=== PATIENT | female | born 1975 | race Caucasian/White ===

== ENCOUNTER 2022-10-22 15:12 | Outpatient (REF) | payer OTHER, SELFPAY ==
[2022-10-22 15:59] LABS: SARS-CoV-2 Ag NEGATIVE (NEGATIVE)
[2022-10-23 15:13] LABS: SARS-CoV-2 NAA NOT DETECTED (NOT DETECTE)
== END 2022-10-22 15:13 | disposition home or self-care (01) ==
LOC: LAB 15:12
PROVIDERS: PCP Family Medicine; Visit Provider Family Medicine
DX: R53.83 Other fatigue (principal); R50.9 Fever, unspecified
CPT/HCPCS: 87635; 87811; U0003

== ENCOUNTER 2023-10-28 10:46 | Emergency (ER) | payer OTHER, SELFPAY ==
[2023-10-28 10:49] VITALS: BP 180/100; PULSE 79; TEMP 36.8; O2SAT 95; BMI 37.8
--- NOTE | 2023-10-28 11:00 | US_ITS ---
The [address] [address] Patient Name: MELLY ROMERO MRN: [id number] date: 1975 Sex: F Assigned Patient Location: ER Current Patient Location: ER Accession/Order Number: [id number] Exam Date: 10/28/2023 11:01 Report Date: 10/28/2023 12:33 At the request of: JOHNNY MURCIA Procedure: US right upper quadrant EXAM: US right upper quadrant HISTORY: Right upper quadrant pain COMPARISON: None. TECHNIQUE: Grayscale, color and Doppler FINDINGS: The liver measures 19.2 cm in length. The liver contour is nodular. Diffuse increase in hepatic echotexture with no focal mass. Hepatopedal flow identified in the main portal vein with a velocity of 23 cm/s. The gallbladder is normal in size. Negative sonographic Multani sign. The wall measures 1.4 mm. 2 areas of echogenicity in the posterior gallbladder wall, adherent stones are suspected. Common bile duct measures 3.7 mm. The visualized pancreas is normal The right kidney is normal. No free fluid US/US right upper quadrant IMPRESSION: Echogenic nodular liver, consider cirrhosis Cholelithiasis without evidence of acute cholecystitis Electronically authenticated by: JOSE DAVID WILSON Date: 10/28/2023 12:33
--- NOTE | 2023-10-28 11:01 | ED_ITS ---
HPI - Abdominal Pain General Chief Complaint: Abdominal Pain Stated Complaint: FLANK PAIN, RIGHT Time Seen by Provider: 10/28/23 10:56 Source: patient Mode of arrival: walk-in Limitations: no limitations History of Present Illness HPI narrative: 48-year-old female presents for pain to the right upper abdomen. She developed this while she was walking last night at 9 PM and it has been there continuously since then. There was no injury. She is never had problems with her gallbladder and the pain is moderate and sharp. Related Data Previous Rx's ?Medication ?Instructions ?Recorded acetaminophen 300 mg-codeine 30 mg 1 tab PO Q6H PRN pain 5 days #20 10/28/23 tablet tabs ondansetron 4 mg disintegrating 4 mg PO Q6H PRN nausea and 10/28/23 tablet vomiting #20 tabs Allergies Allergy/AdvReac Type Severity Reaction Status Date / Time No Known Drug Allergies Allergy Verified 10/28/23 10:49 Review of Systems ROS Narrative A ten point review of systems is negative except as noted above. PFSH PFSH Social History Little interest or pleasure in doing things: not at all Feeling down, depressed, or hopeless: not at all Exam Narrative Exam Narrative: Nurses note and vital signs reviewed and patient is not hypoxic. General: The patient appears well and in no apparent distress. Patient is resting comfortably on cart. Skin: Warm, dry, no pallor noted. There is no rash noted. Head: Normocephalic, atraumatic Eye: Normal conjunctiva, no drainage Ears, Nose, Mouth, and Throat: oral mucosa is moist. Nares patent. Cardiovascular: Regular Rate and Rhythm Respiratory: Patient is in no distress, no accessory muscle use, lungs are clear to auscultation, no wheezing, rales or rhonchi Back: non-tender GI: Mild tenderness to palpation in the right upper quadrant only. No masses or distention. Elsewhere the abdomen is nontender. Musculoskeletal: The patient has no evidence of calf tenderness, no pitting edema, symmetrical pulses noted bilaterally Neurological: A&O, normal speech Psychiatric: Cooperative Constitutional Vital Signs, click to edit/add: Last Vital Signs Temp 98.3 F 10/28/23 10:49 Pulse 79 10/28/23 10:49 Resp 18 10/28/23 10:49 BP 153/82 H 10/28/23 11:46 Pulse Ox 95 10/28/23 10:49 O2 Del Method Room Air 10/28/23 10:49 Course Vital Signs Vital signs: Vital Signs Temperature 98.3 F 10/28/23 10:49 Pulse Rate 79 10/28/23 10:49 Respiratory Rate 18 10/28/23 10:49 Blood Pressure 180/100 H 10/28/23 10:49 Pulse Oximetry 95 10/28/23 10:49 Oxygen Delivery Method Room Air 10/28/23 10:49 Temperature 98.3 F 10/28/23 10:49 Pulse Rate 79 10/28/23 10:49 Respiratory Rate 18 10/28/23 10:49 Blood Pressure 153/82 H 10/28/23 11:46 Pulse Oximetry 95 10/28/23 10:49 Oxygen Delivery Method Room Air 10/28/23 10:49 MDM - Abdominal Pain MDM Narrative Medical decision making narrative: The patient is found to have gallstones. No evidence of acute cholecystitis. Labs are normal as well and she is able to be discharged home and was referred to general surgery for follow-up. Treatment diagnosis and follow-up were discussed with the patient. Differential Diagnosis Differential diagnosis: Likely abdominal pain, calculus of kidney, constipation, diverticulitis, gastroenteritis, pancreatitis and other (Acute cholecystitis, biliary colic) Lab Data Attestation: I reviewed the patient's lab results. Labs: Lab Results 10/28/23 Range/Units 11:14 WBC 7.5 (4.0-11.0) 10^3/uL RBC 4.56 (4.20-5.40) 10^6/uL Hgb 14.1 (12.0-16.0) g/dL Hct 43.2 (36.0-48.0) % MCV 94.7 (81.0-99.0) fL MCH 30.9 (26.7-34.0) pg MCHC 32.6 (29.9-35.2) g/dL RDW 13.1 (11.0-15.0) % Plt Count 232 (150-450) 10^3/uL MPV 10.3 (9.5-13.5) fL Neut % (Auto) 58.9 (43.0-75.0) % Lymph % (Auto) 31.2 (20.5-60.0) % [place] % (Auto) 7.1 (1.7-12.0) % Eos % (Auto) 1.6 (0.9-7.0) % Baso % (Auto) 0.8 (0.2-2.0) % Neut # (Auto) 4.4 (1.4-6.5) 10^3/uL Lymph # (Auto) 2.3 (1.2-3.8) 10^3/uL [place] # (Auto) 0.5 (0.3-0.8) 10^3/uL Eos # (Auto) 0.1 (0.0-0.7) 10^3/uL Baso # (Auto) 0.1 (0.0-0.1) 10^3/uL Abs Immat Gran (auto) 0.03 (0.00-0.03) 10^3/uL Imm/Tot Granulo (auto) 0.4 (0.0-0.5) % Sodium 142 (136-145) mmol/L Potassium 3.9 (3.5-5.1) mmol/L Chloride 106 (98-107) mmol/L Carbon Dioxide 27.2 (21.0-32.0) mmol/L Anion Gap 12.7 BUN 14.0 (7.0-18.0) mg/dL Creatinine 0.87 (0.55-1.02) mg/dL Est GFR ( Amer) >60 (>=60) Est GFR (Non-Af Amer) >60 (>=60) BUN/Creatinine Ratio 16.1 Glucose 100 (74-106) mg/dL Calcium 9.6 (8.5-10.1) mg/dL Total Bilirubin 0.4 (0.2-1.0) mg/dL Direct Bilirubin 0.1 (0.0-0.2) mg/dL AST 21 (15-37) U/L ALT 25 (14-59) U/L Alkaline Phosphatase 69 (46-116) U/L Total Protein 7.0 (6.4-8.2) g/dL Albumin 3.7 (3.4-5.0) g/dL Globulin 3.3 g/dL Albumin/Globulin Ratio 1.1 Amylase 33 (25-115) U/L Lipase 36.0 (16.0-77.0) U/L Urine Color Yellow (YELLOW) Urine Clarity Clear (CLEAR) Urine pH 6.5 (5.0-9.0) Ur Specific [place] 1.020 (1.005-1.025) Urine Protein Negative (NEG/TRACE) mg/dL Urine Glucose (UA) Negative (NEGATIVE) mg/dL Urine Ketones Negative (NEGATIVE) mg/dL Urine Occult Blood Negative (NEGATIVE) Urine Nitrite Negative (NEGATIVE) Urine Bilirubin Negative (NEGATIVE) Urine Urobilinogen 0.2 (0.2-1.0) EU/dL Ur Leukocyte Esterase Negative (NEGATIVE) Urine RBC None seen (0-2) #/HPF Urine WBC None seen (NONE SEEN) #/HPF Ur Squamous Epith Cells Few A (NONE/RARE) #/LPF Urine Crystals None seen (None Seen) #/HPF Urine Bacteria Trace A (NONE SEEN) #/HPF Urine Casts None seen (NONE SEEN) #/LPF Urine Mucus None seen (NONE SEEN) Imaging Data Gallbladder ultrasound: Radiologist's impression: ITS Impressions Upper Quadrant Ultrasound 10/28/23 11:00 IMPRESSION: Echogenic nodular liver, consider cirrhosis Cholelithiasis without evidence of acute cholecystitis Electronically authenticated by: JOSE DAVID WILSON Date: 10/28/2023 12:33 Discharge Plan Discharge Chief Complaint: Abdominal Pain Clinical Impression: Cholelithiasis, Biliary colic Patient Disposition: Home, Self-Care Time of Disposition Decision: 12:47 Condition: Good Mode of Transportation: Private Vehicle Prescriptions / Home Meds: New acetaminophen-codeine 300-30 mg tablet 1 tab PO Q6H PRN (Reason: pain) 5 Days Qty: 20 0RF ondansetron 4 mg tablet,disintegrating 4 mg PO Q6H PRN (Reason: nausea and vomiting) Qty: 20 0RF Print Language: Bel[place]ian Instructions: Biliary Colic (ED), Gallstones (ED), Laparoscopic Cholecystectomy (DC) Referrals: Ryan Yadav MD [Primary Care Provider] - 1 week Manohar Lincoln MD [Physician] - 1 week
[2023-10-28 11:27] LABS: Basophils Absolute Auto 0.1 10^3/uL (0.0-0.1); Basophils Percent Auto 0.8 % (0.2-2.0); Eosinophils Absolute Auto 0.1 10^3/uL (0.0-0.7); Eosinophils Percent Auto 1.6 % (0.9-7.0); Hematocrit 43.2 % (36.0-48.0); Hemoglobin 14.1 g/dL (12.0-16.0); Immature Granulocytes Abs Auto 0.03 10^3/uL (0.00-0.03); Immature Granulocytes Pct Auto 0.4 % (0.0-0.5); Lymphocytes Absolute Auto 2.3 10^3/uL (1.2-3.8); Lymphocytes Percent Auto 31.2 % (20.5-60.0); Mean Corpuscular HGB Conc 32.6 g/dL (29.9-35.2); Mean Corpuscular Hemoglobin 30.9 pg (26.7-34.0); Mean Corpuscular Volume 94.7 fL (81.0-99.0); Mean Platelet Volume 10.3 fL (9.5-13.5); Monocytes Absolute Auto 0.5 10^3/uL (0.3-0.8); Monocytes Percent Auto 7.1 % (1.7-12.0); Neutrophils Absolute Auto 4.4 10^3/uL (1.4-6.5); Neutrophils Percent Auto 58.9 % (43.0-75.0); Platelet Count 232 10^3/uL (150-450); Red Blood Count 4.56 10^6/uL (4.20-5.40); Red Cell Distribution Width 13.1 % (11.0-15.0); White Blood Count 7.5 10^3/uL (4.0-11.0)
[2023-10-28 11:28] LABS: Bilirubin Urine NEGATIVE (NEGATIVE); Blood Urine NEGATIVE (NEGATIVE); Clarity Urine CLEAR (CLEAR); Color Urine YELLOW (YELLOW); Glucose Urine UA NEGATIVE (NEGATIVE); Ketones Urine NEGATIVE (NEGATIVE); Leukocyte Esterase Urine NEGATIVE (NEGATIVE); Nitrite Urine NEGATIVE (NEGATIVE); Protein Urine NEGATIVE (NEG/TRACE); Urobilinogen Urine 0.2 EU/dL (0.2-1.0); pH Urine 6.5 (5.0-9.0)
[2023-10-28 11:45] LABS: Bacteria Urine TRACE #/HPF (NONE SEEN); Cast Seen? NONE SEEN #/LPF (NONE SEEN); Crystals Seen? None Seen #/HPF (None Seen); Mucus Urine NONE SEEN (NONE SEEN); RBC Urine NONE SEEN #/HPF (0-2); Squamous Epithelial Cell Urine FEW #/LPF (NONE/RARE); WBC Urine NONE SEEN #/HPF (NONE SEEN)
[2023-10-28 11:46] VITALS: BP 153/82
[2023-10-28 11:47] LABS: Alanine Aminotransferase 25 U/L (14-59); Albumin Globulin Ratio 1.1; Albumin Level 3.7 g/dL (3.4-5.0); Alkaline Phosphatase 69 U/L (46-116); Amylase 33 U/L (25-115); Anion Gap 12.7; Aspartate Amino Transferase 21 U/L (15-37); BUN Creatinine Ratio 16.1; Bilirubin Direct 0.1 mg/dL (0.0-0.2); Bilirubin Total 0.4 mg/dL (0.2-1.0); Calcium 9.6 mg/dL (8.5-10.1); Carbon Dioxide 27.2 mmol/L (21.0-32.0); Chloride 106 mmol/L (98-107); Estimated GFR (African America >60 (>=60); Estimated GFR (Non-African Ame >60 (>=60); Globulin 3.3 g/dL; Glucose 100 mg/dL (74-106); Potassium 3.9 mmol/L (3.5-5.1); Sodium 142 mmol/L (136-145)
== END 2023-10-28 13:29 | disposition home or self-care (01) ==
PROVIDERS: Emergency Provider Emergency Medicine; PCP Family Medicine
DX: K80.70 Calculus of gallbladder and bile duct without cholecystitis without obstruction (principal)
CPT/HCPCS: 36415; 76705; 80048; 80076; 81001; 82150; 83690; 85025; 99284